=== PATIENT | female | born 1970 | race Caucasian/White ===

== ENCOUNTER 2017-08-23 15:12 | Outpatient (CLI) | payer OTHER ==
--- NOTE | 2017-08-26 10:17 | DEXA Report ---
DEXA SCAN: 08/23/2017 TECHNIQUE: Dual energy x-ray absorptiometry (DXA) was performed on a [employer] system. Regions measured are the AP spine, femoral neck, and, if needed, forearm. COMPARISON: None. In accordance with the International Society for Clinical Densitometry (ISCD) guidelines, data from previous exams may be reanalyzed using current recommendations and techniques. This is done to allow a more accurate basis for comparison with the current study. FINDINGS: The data for the lumbar spine is as follows: REGION BMD (g/cm/cm) T-SCORE Z-SCORE L1 0.960 -1.4 -0.8 L2 1.004 -1.6 -1.0 L3 1.059 -1.2 -0.5 L4 1.086 -1.0 -0.3 TOTAL 1.035 -1.2 -0.6 NOTE: All evaluable vertebrae are used for classification. The data for the hip is as follows: REGION BMD (g/cm/cm) T-SCORE Z-SCORE Neck 0.855 -1.3 -0.4 TOTAL 0.903 -0.8 -0.2 NOTE: The femoral neck or total proximal femur, whichever is lowest, is used for classification. IMPRESSION: THE WHO CLASSIFICATION BASED ON THE INTERNATIONAL REFERENCE STANDARD IS OSTEOPENIA (REFERENCE LEFT FEMORAL NECK). THE FRACTURE RISK IS INCREASED. RECOMMENDATION: Patients with diagnosis of osteoporosis or osteopenia should have regular bone mineral density assessment. For those eligible for Medicare, routine testing is allowed once every 2 years. Testing frequency can be increased for patients who have rapidly progressing disease or for those who are receiving medical therapy to restore bone mass. COMMENT: World Health Organization (WHO) definitions for osteoporosis and osteopenia: NORMAL BMD: T-score at 1.0 or higher, fracture risk is low. OSTEOPENIA BMD: T-score between 1.0 and -2.5, fracture risk is increased. OSTEOPOROSIS BMD: T-score at 2.5 or lower, fracture risk high. National Osteoporosis Foundation recommends: 1. Obtain adequate dietary calcium (at least 1200 mg per day) and vitamin D (400 -800 international units per day). 2. Participate, as appropriate, in regular weightbearing and muscle- strengthening exercise. 3. Avoid tobacco use and reduce alcohol and caffeine intake. 4. For more detailed information see the website at www.NOF.org. MTDD
== END 2017-08-23 15:13 | disposition home or self-care (01) ==
LOC: DI 15:12
PROVIDERS: ATTEND Physician Assistant
DX: E05.90 Thyrotoxicosis, unspecified without thyrotoxic crisis or storm (principal); M85.852 Other specified disorders of bone density and structure, left thigh
CPT/HCPCS: 77080

== ENCOUNTER 2018-12-01 10:23 | Outpatient (CLI) | payer OTHER | END 2018-12-01 10:24 | disposition home or self-care (01) | LOC: DI 10:23 | PROVIDERS: ATTEND Physician Assistant | DX: I10 Essential (primary) hypertension (principal) | CPT/HCPCS: 93306 ==

== ENCOUNTER 2019-03-22 15:58 | Outpatient (CLI) | payer OTHER ==
[2019-03-22 16:43] LABS: FREE T4 (FREE THYROXINE) 0.93 ng/dL (0.58-1.64)
== END 2019-03-22 15:59 | disposition home or self-care (01) ==
LOC: LAB 15:58
PROVIDERS: ATTEND Internal Medicine Endocrinology, Diabetes & Metabolism
DX: E03.9 Hypothyroidism, unspecified (principal)
CPT/HCPCS: 36415; 84439; 84443

== ENCOUNTER 2019-05-26 12:23 | Outpatient (CLI) | payer OTHER | END 2019-05-26 12:24 | disposition critical access hospital (66) | LOC: EMS 12:23 | PROVIDERS: ATTEND Surgery | DX: M25.552 Pain in left hip (principal); R07.81 Pleurodynia; W11.XXXA Fall on and from ladder, initial encounter; Y92.009 Unspecified place in unspecified non-institutional (private) residence as the place of occurrence of the external cause | CPT/HCPCS: A0425; A0429 ==

== ENCOUNTER 2019-05-26 13:01 | Emergency (ER) | payer OTHER ==
--- NOTE | 2019-05-26 13:12 | ED Physician Documentation ---
History of Present Illness - Stated complaint Stated Complaint: FALL 10 FEET - Chief complaint Chief Complaint: General - History obtained from History obtained from: Patient, EMS - History of Present Illness Timing: Today (This is a 49-year-old woman with history of hypertension and hypothyroidism but otherwise very healthy. She was up 10 or 12 feet on a ladder and the ladder gave out and she kind of rode the ladder down and hit on her right side but it is the left side it hurts. She does not think she hit her head although she was briefly amnestic to the accident. Has no headache or neck pain now. Her only complaints are left-sided chest and hip pain. She has not walked since the accident. She declines pain medication on initial evaluation.) Review of Systems Ten Systems: 10 systems reviewed and negative Constitutional: denies: Fever, Chills Cardiac: reports: Chest pain / pressure. denies: Palpitations, Pedal edema, Calf pain Respiratory: denies: Dyspnea, Cough PD PAST MEDICAL HISTORY - Allergies Allergies/Adverse Reactions: Allergies Allergy/AdvReac Type Severity Reaction Status Date / Time No Known Drug Allergies Allergy Verified 05/26/19 13:10 PD ED PE NORMAL - Vitals Vital signs reviewed: Yes - General General: Alert and oriented X 3, No acute distress - HEENT HEENT: PERRL, EOMI - Neck Neck: Supple, no meningeal sign, No bony TTP, Other (C-collar was removed using Nexus criteria after initial examination) - Cardiac Cardiac: RRR, No murmur - Respiratory Respiratory: No respiratory distress, Clear bilaterally, Other (Tender over the left ribs, mid ribs laterally. No deformity.) - Abdomen Abdomen: Normal bowel sounds, Soft, Other (Minimal left upper quadrant tenderness) - Back Back: No CVA TTP, No spinal TTP - Derm Derm: Normal color, Warm and dry - Extremities Extremities: Other (The left hip seems nontender and painless internal and external rotation. She is unable to lift it off the bed though mostly due to pelvic and back pain.) - Neuro Neuro: Alert and oriented X 3, No motor deficit, No sensory deficit, Other (The patient has equal and normal Achilles and patellar reflexes bilaterally. Normal sensation in all areas of the legs. Patient denies saddle anesthesia. Normal strength in flexion-extension at the ankles, knees, and flexion of the hips.) Results - Vitals Vitals: Vital Signs - 24 hr 05/26/19 05/26/19 13:06 13:48 Heart Rate 67 62 Respiratory 16 16 Rate Blood Pressure 117/67 99/62 O2 Saturation 97 100 Oxygen O2 Source Room air - Labs Labs: Laboratory Tests 05/26/19 05/26/19 05/26/19 13:23 13:23 13:23 WBC 11.1 H RBC 4.37 Hgb 13.5 Hct 41.1 MCV 94.1 MCH 30.9 MCHC 32.8 RDW 12.9 Plt Count 332 MPV 9.3 Neut # (Auto) 9.0 H Lymph # (Auto) 1.1 L [place] # (Auto) 0.7 Eos # (Auto) 0.1 Baso # (Auto) 0.1 Absolute Nucleated RBC 0.00 Nucleated RBC % 0.0 PT 12.0 INR 1.1 Sodium 134 L Potassium 3.9 Chloride 101 Carbon Dioxide 25 Anion Gap 8.0 BUN 12 Creatinine 0.6 Estimated GFR (MDRD) 105 Glucose 152 H Calcium 8.9 Total Bilirubin 1.4 H AST 51 H ALT 37 Alkaline Phosphatase 31 L Total Protein 7.1 Albumin 4.3 Globulin 2.8 Albumin/Globulin Ratio 1.5 Lipase 88 H - Rads (name of study) CT of the head Radiology: EMP read contemporaneously (Sinus dz, NAD) CT Cervical Spine Radiology: EMP read contemporaneously (Chronic and generative changes and sinus disease without fracture) CT A/P Radiology: EMP read contemporaneously (Pression fracture with left displaced zone 1 sacral fracture and left obturator ring fractures. Mild enlargement of the left posterior obturator consistent with hematoma. No CT evidence of acute bladder injury. Liver hemangioma or potentially a grade 1 liver injury. Left posterior rib fractures) CT chest with IV contrast Radiology: EMP read contemporaneously (Tiny pneumothorax with 8 left-sided rib fractures) PD MEDICAL DECISION MAKING - ED course ED course: 49-year-old woman with fall from a height. Some amnesia but no obvious signs of head or neck injury. Out of an abundance of caution these were imaged as well. My "wet" read of the CTs show left-sided rib fractures with a small pneumothorax and a chip fracture of the anterior acetabulum and a left-sided sacral fracture. Case was discussed by phone with Dr. Jamil Boyer who recommended having the orthopedic surgeon at [facility] at least look at the films to see if they thought she was an operative candidate. If so she can be transferred, if they do not think surgery is required then she could stay here for pneumothorax observation and conservative management. I spoke with the orthopedic surgeon there who felt that she might be an operative candidate and recommended transfer. Accepted by Dr. Ramírez at [facility] ER in transfer, cobras were completed. She is stable for transport for a higher level of trauma care. Multiple delays in transport were noted including call back from the orthopedic surgeon there, And obtaining a rig to transport her. Departure - Departure Disposition: 02 Transfer Acute Care Hosp Clinical Impression: Pelvic fracture, Left acetabular fracture, Rib fractures, Pneumothorax on left Condition: Serious
--- NOTE | 2019-05-26 13:28 | XRAY Report ---
Reason: fall from height L chest pain Procedure Date: 05/26/2019 Accession Number: [id number] / [id number] Procedure: XR - Chest 1 View X-Ray CPT Code: 08294 Final Report FULL RESULT: EXAM: CHEST RADIOGRAPHY EXAM DATE: 05/26/2019 01:23 PM. CLINICAL HISTORY: Fall from height L chest pain. COMPARISON: None. TECHNIQUE: 1 view. FINDINGS: Lungs/Pleura: No focal opacities evident. No pleural effusion. No pneumothorax. Mediastinum: Within exam limitations, the cardiomediastinal contour is normal. Other: No definite fractures. IMPRESSION: Normal single view chest. RADIA
[2019-05-26] MEDS ORDERED: ONDANSETRON 4 MG/2 ML VIAL IVP STA ×2 (13:31→15:16)
[2019-05-26] MEDS ORDERED: HYDROmorphone 1 MG/ML SYRINGE IVP STA ×2 (13:31→15:16)
[2019-05-26 13:40] LABS: BASOPHILS # (AUTO) 0.1 10^3/uL (0.0-0.1); BASOPHILS % (AUTO) 0.5 %; EOSINOPHILS # (AUTO) 0.1 10^3/uL (0.0-0.7); EOSINOPHILS % (AUTO) 0.9 %; HGB - HEMOGLOBIN 13.5 g/dL (12.0-16.0); LYMPHOCYTES # (AUTO) 1.1 10^3/uL (1.5-3.5); LYMPHOCYTES % (AUTO) 10.1 %; MEAN CORPUSCULAR HEMOGLOBIN 30.9 pg (27.0-31.0); MEAN CORPUSCULAR HGB CONC 32.8 g/dL (32.0-36.0); MEAN CORPUSCULAR VOLUME 94.1 fL (81.0-99.0); MEAN PLATELET VOLUME 9.3 fL (7.9-10.8); MONOCYTES # (AUTO) 0.7 10^3/uL (0.0-1.0); MONOCYTES % (AUTO) 6.3 %; NEUTROPHILS % (AUTO) 80.8 %; PLT - PLATELET COUNT 332 10^3/uL (130-450); RED BLOOD COUNT 4.37 10^6/uL (4.20-5.40); RED CELL DISTRIBUTION WIDTH 12.9 % (12.0-15.0); WHITE BLOOD COUNT 11.1 x10^3/uL (4.8-10.8)
[2019-05-26] MEDS ORDERED: IOVERSOL 320 100 ML VIAL IVP ONE ×2 (13:43→14:44)
[2019-05-26 13:45] LABS: INR 1.1 (0.8-1.2)
[2019-05-26 13:48] LABS: ALBUMIN 4.3 g/dL (3.2-5.5); ALBUMIN/GLOBULIN RATIO 1.5 (1.0-2.2); BILIRUBIN,TOTAL 1.4 mg/dL (0.2-1.0); CALCIUM 8.9 mg/dL (8.5-10.3); CREATININE 0.6 mg/dL (0.4-1.0); TOTAL PROTEIN 7.1 g/dL (6.7-8.2)
--- NOTE | 2019-05-26 14:51 | CT Report ---
Reason: fall from height abd/hip pain, go through hip Procedure Date: 05/26/2019 Accession Number: [id number] / [id number] Procedure: CT - Abdomen/Pelvis W CPT Code: Final Report FULL RESULT: EXAM: CT ABDOMEN AND PELVIS EXAM DATE: 05/26/2019 02:16 PM. CLINICAL HISTORY: Fall from height abd/hip pain, go through hip. COMPARISONS: ABDOMEN/PELVIS W/ 05/26/2019 2:07 PM. TECHNIQUE: Routine helical CT imaging was performed through the abdomen and pelvis. IV contrast: OPTIRAY 320. Enteric contrast: No. Reconstructions: Coronal and sagittal. In accordance with CT protocol optimization, one or more of the following dose reduction techniques were utilized for this exam: automated exposure control, adjustment of mA and/or KV based on patient size, or use of iterative reconstructive technique. FINDINGS: Lung Bases: Findings are detailed separately. Liver: There is a 1.8 cm hypodensity within segment 5 of the liver. No other focal hepatic abnormalities are seen. Gallbladder/Bile Ducts: Unremarkable. Spleen: Normal. Pancreas: Normal. Adrenal Glands: Normal. Kidneys: Normal. No masses or hydronephrosis. Peritoneal Cavity/Bowel: No dilated or thick-walled bowel is seen. No intraperitoneal free air or free fluid. No enlarged mesenteric or retroperitoneal lymph nodes. No evidence of appendicitis. Pelvic Organs: Intrauterine device is in place. Uterus and adnexa demonstrate no significant abnormalities. The bladder is decompressed. It demonstrates no acute abnormalities. Vasculature: No aneurysms or other significant abnormality. Bones: There are displaced left posterior rib fractures. There is a left lateral compression injury with zone 1 sacral fracture and bilateral obturator ring fractures. Other: None. IMPRESSION: 1. Left pelvic lateral compression injury with left displaced zone 1 sacral fracture and left obturator ring fractures. 2. There is mild enlargement of the left posterior obturator musculature consistent with hematoma. 3. There is no CT evidence of acute bladder injury. 4. There is a 1.8 cm heterogeneous hypodensity within segment 6 of the liver. Differential considerations include hemangioma or grade 1 liver injury. 4. There are posterior left rib fractures. Chest findings are detailed separately. RADIA
--- NOTE | 2019-05-26 14:51 | CT Report ---
Reason: head inj Procedure Date: 05/26/2019 Accession Number: [id number] / [id number] Procedure: CT - HEAD WO CPT Code: Final Report FULL RESULT: EXAM: CT HEAD EXAM DATE: 05/26/2019 02:12 PM. CLINICAL HISTORY: Head injury. Fall from ladder 10 feet. COMPARISON: CT head 07/31/2013. TECHNIQUE: Multiaxial CT images were obtained from the foramen magnum to the vertex. Reformats: Sagittal and coronal. IV contrast: None. In accordance with CT protocol optimization, one or more of the following dose reduction techniques were utilized for this exam: automated exposure control, adjustment of mA and/or KV based on patient size, or use of iterative reconstructive technique. FINDINGS: Parenchyma: Stable 7 mm prominent perivascular space versus chronic lacunar infarct right basal ganglia. No intraparenchymal hemorrhage. No evidence of mass, midline shift, or CT findings of infarction. Wan-white differentiation is distinct. Extraaxial Spaces: Normal for age. No subdural or epidural collections identified. Ventricles: Normal in size and position. Sinuses and Orbits: Near complete opacification of the right maxillary sinus. Dependent mucosal thickening or debris left maxillary sinus. Evidence of prior surgical fixation of the maxillae bilaterally partial opacification right mastoid air cells. Bones: No evidence of acute fracture or calvarial defect. Other: None. IMPRESSION: 1. No definite acute intracranial abnormality. No skull fracture. 2. Paranasal sinus disease. RADIA
--- NOTE | 2019-05-26 14:59 | CT Report ---
Reason: Head inj Procedure Date: 05/26/2019 Accession Number: [id number] / [id number] Procedure: CT - CERVICAL SPINE WO CPT Code: Final Report FULL RESULT: EXAM: CT CERVICAL SPINE WITHOUT CONTRAST DATE: 05/26/2019 02:41 PM. HISTORY: Head inj. COMPARISONS: None. TECHNIQUE: Thin-section axial images were acquired of the cervical spine without contrast. Post-processing: Coronal and sagittal reformats. Other: None. In accordance with CT protocol optimization, one or more of the following dose reduction techniques were utilized for this exam: automated exposure control, adjustment of mA and/or KV based on patient size, or use of iterative reconstructive technique. FINDINGS: Alignment: No scoliosis or spondylolisthesis. Bones: No fracture or bone lesion. Bilateral TMJ degenerative disease. Interspace Levels/Facets: Severe degenerative disk disease at C5-C6 and less so C6-C7. Moderate posteriorly encroaching C5-C6 and mild posteriorly encroaching C6-C7 vertebral body spurring with associated central canal stenosis, greater at C5-C6. Mild degenerative facet disease with moderate facet disease at C7-T1 on the left. Uncovertebral spurring results in moderate bilateral C5-C6 and C6-C7 bony neural foraminal narrowing. T Musculature: Normal. No fatty atrophy. Other: Near-total opacification of the visualized right maxillary sinus. Peripheral soft tissue thickening within the inferior left maxillary sinus. Focal posterior, inferior left maxillary wall defect through which some fat projects. Partial demonstration of surgical fixation hardware along the anterior negrete of both maxillary sinuses. No prevertebral soft tissue swelling The lung apices are clear. The inferior most images a small focus of gas within the anterior right supraclavicular soft tissues which is likely venous gas, presumably iatrogenic. No other abraham soft tissue gas IMPRESSION: 1. No fracture or acute abnormality of the cervical spine. 2. Chronic and degenerative findings, as above. 3. Maxillary sinus opacification and postoperative changes, as above. RADIA
--- NOTE | 2019-05-26 15:10 | CT Report ---
Reason: fall from height L chest pain Procedure Date: 05/26/2019 Accession Number: [id number] / [id number] Procedure: CT - CHEST W CPT Code: Final Report FULL RESULT: EXAM: CT CHEST EXAM DATE: 05/26/2019 02:16 PM. CLINICAL HISTORY: Fall from height L chest pain. Fall from 10 foot ladder landing on right anterior body. COMPARISONS: ABDOMEN/PELVIS W/ 05/26/2019 2:07 PM CHEST 1 VIEW 05/26/2019 1:02 PM. TECHNIQUE: Routine helical CT imaging was performed through the chest. IV contrast: 90 mL Optiray 320. Reconstructions: Coronal and sagittal. In accordance with CT protocol optimization, one or more of the following dose reduction techniques were utilized for this exam: automated exposure control, adjustment of mA and/or KV based on patient size, or use of iterative reconstructive technique. FINDINGS: Lungs/Pleura: Trace left anterior layer pneumothorax in the lower chest. Trace left pleural effusion/pleural thickening. Groundglass opacities in the left lung base likely reflect contusion. There are a few small posterior subpleural pneumatoceles in the left lower lobe measuring up to 5 mm, presumably posttraumatic. Additional patchy opacities in the bilateral upper lobes, greater on the right could reflect additional pulmonary contusions versus infectious/inflammatory infiltrate. No suspicious nodules or masses. No right-sided pneumothorax or pleural effusion. Mediastinum: No mediastinal hematoma. No pericardial effusion. Normal cardiac size. No mediastinal or perihilar lymphadenopathy. Tiny locule of gas in the right jugular vein may be related to venous injection (2/14). Bones: Left fourth through 11th rib fractures, detailed as follows: -Eleventh posterior rib fracture is only partially visualized and comminuted. -Displaced left posterior 10th rib fracture with distal fragment indented a ribs width into the thoracic cavity. -Comminuted mildly displaced posterior ninth rib fracture. -Nondisplaced posterior seventh rib fracture. -Mildly displaced anterolateral sixth rib fracture. -Nondisplaced anterolateral fifth rib fracture with small locules of air in the surrounding soft tissues. -Nondisplaced lateral fourth rib fracture. No other fracture identified in the chest. Visualized Abdomen: Numerous subcentimeter hypodensities in liver parenchyma. See separate report for concurrent CT abdomen/pelvis for complete findings. Other: None. IMPRESSION: 1. Fourth through eleventh left-sided rib fractures, some of which are displaced, with associated pulmonary contusion and tiny posttraumatic pneumatoceles. 2. Trace anteriorly layering left pneumothorax. 3. Additional bilateral upper lobe patchy opacities could reflect pulmonary contusion versus incidental infectious/inflammatory process. Clinical correlation recommended. 4. Other findings as above. RADIA The call report notification system was initiated by Dr. Daryn Bryan at 02:59 PM on 05/26/2019. The above call report findings were discussed with Wilber Liu by Dr. Daryn Bryan at 03:01 PM on 05/26/2019.
[2019-05-26 16:38] VITALS: BP 91/73
== END 2019-05-26 16:37 | disposition short-term general hospital (02) ==
LOC: EDUNIT# → ED 13:01
DX: S22.42XA Multiple fractures of ribs, left side, initial encounter for closed fracture (principal); S32.111A Minimally displaced Zone I fracture of sacrum, initial encounter for closed fracture; S32.492A Other specified fracture of left acetabulum, initial encounter for closed fracture; W17.89XA Other fall from one level to another, initial encounter; J93.9 Pneumothorax, unspecified; I10 Essential (primary) hypertension
CPT/HCPCS: 36415; 70450; 71045; 71260; 72125; 74177; 80053; 83690; 85025; 85610; 96374; 96375; 96376; 99284; 99285; J1170; Q9967

== ENCOUNTER 2019-05-26 16:38 | Outpatient (CLI) | payer OTHER | END 2019-05-26 16:39 | disposition home or self-care (01) | LOC: EMS 16:38 | PROVIDERS: ATTEND Surgery | DX: S22.49XA Multiple fractures of ribs, unspecified side, initial encounter for closed fracture (principal); S32.9XXA Fracture of unspecified parts of lumbosacral spine and pelvis, initial encounter for closed fracture; S27.0XXA Traumatic pneumothorax, initial encounter; W11.XXXA Fall on and from ladder, initial encounter | CPT/HCPCS: A0425; A0426 ==

== ENCOUNTER 2019-12-10 13:25 | Outpatient (CLI) | payer OTHER ==
--- NOTE | 2019-12-12 08:13 | Mammography Report ---
BILATERAL DIGITAL SCREENING MAMMOGRAM 3D/2D: 12/10/2019 CLINICAL: Routine screening. Baseline exam. No prior exams were available for comparison. The tissue of both breasts is heterogeneously dense. T his may lower the sensitivity of mammography. No significant masses, calcifications, or other findings are seen in either breast. IMPRESSION: NEGATIVE There is no mammographic evidence of malignancy. A 1 year screening mammogram is recommended. This exam was interpreted at Station ID: [id number]. NOTE: For mammograms, a report in lay terms will be sent to the patient. Approximately 15% of breast malignancies will not be visualized mammographically. In the management of a palpable breast mass, a negative mammogram must not discourage biopsy of a clinically suspicious lesion. Electronically Signed By: Israel le/miguel:12/10/2019 18:41:16 ACR BI-RADS Category 1: Negative 3341F PARENCHYMAL PATTERN: (D) - The breast(s) demonstrate(s) heterogeneously dense fibroglandular dorian shepherd. BI-RADS CATEGORY: (1) - 1 RECOMMENDATION: (ANNUAL) - Recommend routine annual screening mammography. [id number] 1 year screening LATERALITY: (B)
== END 2019-12-10 13:26 | disposition home or self-care (01) ==
LOC: DI 13:25
PROVIDERS: ATTEND Nurse Practitioner Family
DX: Z12.31 Encounter for screening mammogram for malignant neoplasm of breast (principal)
CPT/HCPCS: 77063; 77067

== ENCOUNTER 2019-12-10 13:26 | Outpatient (CLI) | payer OTHER ==
--- NOTE | 2019-12-11 16:29 | DEXA Report ---
PROCEDURE: Dexa Spine and/or Hip INDICATIONS: HISTORY OF OSTEOPOROSIS, PELVIC FRACTURE TECHNIQUE: Dual energy x-ray absorptiometry (DXA) was performed on a [employer] System. Regions measur ed are the AP Spine, femoral neck, and if needed forearm. COMPARISON: 08/23/2017. FINDINGS: Lumbar Spine: Bone Mineral Density 1.057 g/cm/cm,T score -1.0, normal bone mineral density Left Femoral Neck: Bone Mineral Density 0.855 g/cm/cm, T score -1.2, osteopenia (T score greater or equal to -1.0: NORMAL) (T score from -1.1 to -2.4: OSTEOPENIA) (T score less than or equal to -2.5 to: OSTEOPOROSIS) Impression: Osteopenia. Patient is at increased risk for fracture. Patients with diagnosis of osteoporosis or osteopenia should have regular bone mineral density assess ment. For those eligible for Medicare, routine testing is allowed once every 2 years. Testing frequ ency can be increased for patients who have rapidly progressing disease or for those who are receivin g medical therapy to restore bone mass. Reviewed by: Israel Garcia MD on 12/11/2019 4:28 PM PDT Approved by: Israel Garcia MD on 12/11/2019 4:28 PM PDT Station ID: [id number]
== END 2019-12-10 13:27 | disposition home or self-care (01) ==
LOC: DI 13:26
PROVIDERS: ATTEND Registered Nurse
DX: M85.88 Other specified disorders of bone density and structure, other site (principal); Z82.62 Family history of osteoporosis
CPT/HCPCS: 77080

== ENCOUNTER 2020-04-01 13:08 | Outpatient (CLI) | payer OTHER ==
--- NOTE | 2020-04-01 14:46 | MRI Report ---
PROCEDURE: Shoulder RT W/O INDICATIONS: RT SHOULDER PAIN TECHNIQUE: Noncontrast oblique coronal T2 fast spin echo with fat saturation, oblique sagittal T1 spin echo and T2 fast spin echo with fat saturation, axial T1 spin echo and T2 fast spin echo with fat saturation t hrough the shoulder. COMPARISON: None. FINDINGS: Image quality: Excellent. Rotator cuff: Low-grade partial-thickness intrasubstance tearing of the anterior, mid, and posterior supraspinatus, as well as the mid and anterior infraspinatus tendons at the humeral insertion site, e xtending to the musculotendinous junction. Subscapularis and teres minor tendons are intact. No rotat or cuff atrophy. Bones and bursae: No bone marrow contusions or fractures. Moderate acromioclavicular joint degenerat ion. The acromion demonstrates conventional anatomy, without an os acromiale. No pathologic subacro mial/subdeltoid bursal fluid is present. Capsule and soft tissues: Linear high T2 signal intensity traverses the posterior labrum, suggestive of labral tearing. The long head of the biceps tendon demonstrates normal location and morphology. T he rotator interval appears normal, without fibrosis. The coracohumeral ligament is normal in thickn ess. IMPRESSION: 1. Acromioclavicular joint osteoarthritis. 2. Low-grade partial thickness tearing of the supraspinatus and infraspinatus tendons. 3. Possible posterior labral tearing. Reviewed by: Vasyl Hargrove MD on 04/01/2020 2:44 PM PST Approved by: Vasyl Hargrove MD on 04/01/2020 2:44 PM PST Station ID: [id number]
--- NOTE | 2020-04-01 14:51 | XRAY Report ---
PROCEDURE: Shoulder 3 View RT INDICATIONS: RT SHOULDER PAIN TECHNIQUE: views of the shoulder were acquired. COMPARISON: None. FINDINGS: Bones: No fractures or dislocations. No suspicious bony lesions. Visualized ribs appear intact. P eriarticular osteophyte formation at the acromioclavicular and glenohumeral joints. Soft tissues: No suspicious soft tissue calcifications. IMPRESSION: Osteoarthritis. No acute fracture. No osseous lesion. If symptoms and/or clinical suspic ion for pathology continue, further assessment with repeat plain films, or advanced imaging (e.g., CT , MRI, or bone scan) is recommended for further assessment. Reviewed by: Vasyl Hargrove MD on 04/01/2020 2:50 PM PST Approved by: Vasyl Hargrove MD on 04/01/2020 2:50 PM PST Station ID: [id number]
== END 2020-04-01 13:09 | disposition home or self-care (01) ==
LOC: DI 13:08
PROVIDERS: ATTEND Nurse Practitioner Family
DX: M19.011 Primary osteoarthritis, right shoulder (principal); S46.811A Strain of other muscles, fascia and tendons at shoulder and upper arm level, right arm, initial encounter

== ENCOUNTER 2020-11-18 16:27 | Outpatient (CLI) | payer OTHER | END 2020-11-18 16:28 | disposition home or self-care (01) | LOC: COV 16:27 | PROVIDERS: ATTEND Family Medicine | DX: Z20.822 Contact with and (suspected) exposure to COVID-19 (principal) ==

== ENCOUNTER 2021-05-05 14:41 | Outpatient (CLI) | payer OTHER ==
--- NOTE | 2021-05-05 20:47 | CT Report ---
PROCEDURE: PELVIS WO INDICATIONS: PELVIC BONE PAIN S/P SURGERY TECHNIQUE: Noncontrast 3 mm axial sections acquired through the bony pelvis, with coronal and sagittal reformatt ing. For radiation dose reduction, the following was used: automated exposure control, adjustment of mA and/or kV according to patient size. COMPARISON: CT abdomen/pelvis 05/26/2019. FINDINGS: Image quality: Excellent. Bones: Postsurgical changes are seen from fixation of the left sacroiliac joint with a single metall ic screw. The hardware is intact without signs of loosening. The metallic screw appears to be well-po sitioned and within the sacrum. Mild residual cortical irregularity is seen along the anterior left h emisacrum, which appears well-healed. Previously seen left pubic rami fractures are healed without si gnificant residual deformity. No acute osseous fracture or dislocation is seen. Degenerative changes are seen in the included lower lumbar spine. Soft tissues: The musculature surrounding the hips is normal in bulk. The articular cartilages, labr um, ligaments, and tendons are not well evaluated with standard CT. No acute opacity is seen in the s oft tissues of the pelvis. An intrauterine device is seen in expected position. A right ovarian cyst measures 2.3 cm, similar in size when compared to the CT from 05/26/2019 IMPRESSION: 1.Post surgical changes from left sacroiliac fixation with intact hardware. Previously seen sacral an d pelvic fractures appear well-healed. 2.No acute osseous abnormality. 3.Nonspecific right ovarian 2.3 cm cyst has not significant changed in size. 4.Mild degenerative changes in the included lower lumbar spine. Reviewed by: Didier Rowell MD on 05/05/2021 8:45 PM PST Approved by: Didier Rowlel MD on 05/05/2021 8:45 PM PST Station ID: [id number]
== END 2021-05-05 14:42 | disposition home or self-care (01) ==
LOC: DI 14:41
PROVIDERS: ATTEND Internal Medicine
DX: R10.2 Pelvic and perineal pain (principal); Z09 Encounter for follow-up examination after completed treatment for conditions other than malignant neoplasm; Z87.81 Personal history of (healed) traumatic fracture; N83.201 Unspecified ovarian cyst, right side; M47.816 Spondylosis without myelopathy or radiculopathy, lumbar region

== ENCOUNTER 2022-01-05 13:05 | Outpatient (CLI) | payer OTHER ==
[2022-01-05 13:55] LABS: THYROID STIMULATING HORMONE 2.56 uIU/mL (0.34-5.60)
[2022-01-05 13:57] LABS: FREE T4 (FREE THYROXINE) 0.83 ng/dL (0.58-1.64)
== END 2022-01-05 13:06 | disposition home or self-care (01) ==
LOC: LAB 13:05
PROVIDERS: ATTEND Internal Medicine Endocrinology, Diabetes & Metabolism
DX: E89.0 Postprocedural hypothyroidism (principal)
CPT/HCPCS: 36415; 84439; 84443

== ENCOUNTER 2022-09-10 14:37 | Outpatient (CLI) | payer OTHER ==
--- NOTE | 2022-09-13 09:51 | Mammography Report ---
BILATERAL DIGITAL SCREENING MAMMOGRAM 3D/2D: 09/10/2022 CLINICAL: Routine screening. Comparison is made to exam dated: 12/10/2019 mammogram - [facility]. Both breasts are heterogeneously dense, which may obscure small masses (category c / 51-75% glandular tissue). No significant masses, calcifications, or other findings are seen in either breast. There has been no significant interval change. IMPRESSION: NEGATIVE There is no mammographic evidence of malignancy. A 1 year screening mammogram is recommended. Based on the Tyrer Cuzick model (a risk assessment model) the patients lifetime risk is 19.1% and he r 10 year risk is 5.7%. According to the ACR, ACS, and NCCN guidelines, an annual breast MRI exam garcía ng with mammogram is recommended if the patients lifetime risk is 20% or greater. This exam was interpreted at Station ID: [id number]. NOTE: For mammograms, a report in lay terms will be sent to the patient. Approximately 15% of breast malignancies will not be visualized mammographically. In the management of a palpable breast mass, a negative mammogram must not discourage biopsy of a clinically suspicious lesion. Electronically Signed By: Sanket white/miguel:09/10/2022 17:19:44 letter sent: No_Letter ACR BI-RADS Category 1: Negative 3341F PARENCHYMAL PATTERN: (D) - The breast(s) demonstrate(s) heterogeneously dense fibroglandular dorian shepherd. BI-RADS CATEGORY: (1) - 1 Mammogram [id number] 1 year screening LATERALITY: (B)
== END 2022-09-10 14:38 | disposition home or self-care (01) ==
LOC: DI 14:37
PROVIDERS: ATTEND Physician Assistant
DX: Z12.31 Encounter for screening mammogram for malignant neoplasm of breast (principal)

== ENCOUNTER 2023-08-25 16:22 | Emergency (ER) | payer OTHER ==
[2023-08-25 16:48] VITALS: O2SAT 97
--- NOTE | 2023-08-25 16:55 | ED Physician Documentation ---
History of Present Illness - Stated complaint Stated Complaint: ELAINE/DIZZY/GI - Chief complaint Chief Complaint: General - History obtained from History obtained from: Patient - Additonal information Additional information: 53-year-old woman with history of hypertension hypothyroidism. She just got back from [place] and 9 days ago developed both flu and COVID confirmed on a swab. Then she developed terrible diarrhea which stopped 2 days ago and has a persistent cough. She presents to the emergency department mostly because she is feeling dehydrated very "dry" all over. She denies fevers. PD PAST MEDICAL HISTORY - Past Medical History Past Medical History: Yes Cardiovascular: Hypertension Endocrine/Autoimmune: HyPOthyroidism Psych: Anxiety - Past Surgical History Past Surgical History: Yes - Allergies Allergies/Adverse Reactions: Allergies Allergy/AdvReac Type Severity Reaction Status Date / Time Sulfa (Sulfonamide Allergy Hives Verified 08/25/23 16:34 Antibiotics) - Social History Does the pt smoke?: No Smoking Status: Never smoker Does the pt drink ETOH?: No Does the pt have substance abuse?: No - Immunizations Immunizations are current?: Yes - POLST Patient has POLST: No PD ED PE NORMAL - Vitals Vital signs reviewed: Yes - General General: Alert and oriented X 3, No acute distress - HEENT HEENT: PERRL, EOMI, Pharynx benign - Neck Neck: Supple, no meningeal sign - Cardiac Cardiac: RRR, No murmur - Respiratory Respiratory: No respiratory distress, Other (Occasional cough with rhonchi at both bases.) - Derm Derm: No rash Results - Vitals Vitals: Vital Signs - 24 hr 08/25/23 16:34 Temperature 36.5 C Heart Rate 64 Respiratory 16 Rate Blood Pressure 156/86 H O2 Saturation 97 Oxygen O2 Source Room air - Labs Labs: Laboratory Tests 08/25/23 08/25/23 16:54 16:54 WBC 4.0 L RBC 4.41 Hgb 13.4 Hct 39.8 MCV 90.2 MCH 30.4 MCHC 33.7 RDW 12.3 Plt Count 274 MPV 9.3 Neut # (Auto) Not Reportable Lymph # (Auto) Not Reportable Rowan # (Auto) Not Reportable Eos # (Auto) Not Reportable Baso # (Auto) Not Reportable Absolute Nucleated RBC Not Reportable Total Counted 100 Band Neuts % (Manual) 0 Abnorm Lymph % (Manual) 5 Nucleated RBC % Not Reportable Neutrophils # (Manual) 2.2 Lymphocytes # (Manual) 1.4 L Monocytes # (Manual) 0.4 Eosinophils # (Manual) 0.0 Basophils # (Manual) 0.0 Differential Comment MANUAL DIFFERENTIAL WBC Morphology 1+ SMUDGE CELLS Platelet Estimate NORMAL (130-450,000) Platelet Morphology 1+ LARGE P RBC Morph Micro Appear NORMAL APPEARANCE Sodium 133 L Potassium 3.8 Chloride 98 L Carbon Dioxide 29 Anion Gap 6.0 BUN 15 Creatinine 0.8 Estimated GFR (MDRD) 74 L Glucose 86 Calcium 9.7 Magnesium 1.8 Total Bilirubin 0.8 AST 28 ALT 21 Alkaline Phosphatase 49 Total Protein 6.8 Albumin 4.3 Globulin 2.5 Albumin/Globulin Ratio 1.7 - Rads (name of study) Single view chest x-ray is clear with stable scarring of the right upper lobe Relevant Findings:: Final report received, EMP independent interpretation of test PD Medical Decision Making - ED course ED course: She presents after having both flu and COVID feeling dehydrated. She also has a persistent cough. CBC showing the expected lymphopenia of a viral syndrome. CMP showing mild hyponatremia probably from dehydration. She received 2 L of crystalloid and a dose of IV ketorolac here with improvement in her symptoms. Departure - Departure Disposition: 01 Home, Self Care Clinical Impression: Dehydration Condition: Good Record reviewed to determine appropriate education?: Yes Instructions: ED Dehydration Comments: You were seen today after having both flu and COVID at the same time with symptoms of dehydration. He received 2 L of IV fluid here. Your labs were only notable for a lymphopenia which is expected when you have something like COVID and should improve with time. Drink plenty fluids and rest. Return for new or worsening symptoms. Forms: PCP List
[2023-08-25] MEDS: LACTATED RINGERS 1,000 ML IV STA (17:12)
[2023-08-25] MEDS: SODIUM CHLORIDE 0.9% 1,000 ML IV STA (17:13)
[2023-08-25] MEDS: KETOROLAC 15 MG/ML VIAL IVP STA (17:13)
[2023-08-25 17:22] LABS: BASOPHILS % (AUTO) 0.5 %; EOSINOPHILS % (AUTO) 2.5 %; HCT - HEMATOCRIT 39.8 % (37.0-47.0); HGB - HEMOGLOBIN 13.4 g/dL (12.0-16.0); LYMPHOCYTES % (AUTO) 32.7 %; MEAN CORPUSCULAR HEMOGLOBIN 30.4 pg (27.0-31.0); MEAN CORPUSCULAR HGB CONC 33.7 g/dL (32.0-36.0); MEAN CORPUSCULAR VOLUME 90.2 fL (81.0-99.0); MEAN PLATELET VOLUME 9.3 fL (7.9-10.8); MONOCYTES % (AUTO) 9.9 %; NEUTROPHILS % (AUTO) 54.2 %; PLT - PLATELET COUNT 274 10^3/uL (130-450); RED BLOOD COUNT 4.41 10^6/uL (4.20-5.40); RED CELL DISTRIBUTION WIDTH 12.3 % (12.0-15.0)
[2023-08-25 17:24] LABS: MAGNESIUM 1.8 mg/dL (1.7-2.3)
[2023-08-25 17:25] LABS: BAND NEUTROPHILS % (MANUAL) 0 %
[2023-08-25 17:30] LABS: ALBUMIN 4.3 g/dL (3.2-5.5); ALBUMIN/GLOBULIN RATIO 1.7 (1.0-2.2); BILIRUBIN,TOTAL 0.8 mg/dL (0.2-1.0); CALCIUM 9.7 mg/dL (8.5-10.3); CREATININE 0.8 mg/dL (0.6-1.3); POTASSIUM 3.8 mmol/L (3.5-4.5); TOTAL PROTEIN 6.8 g/dL (6.4-8.9)
[2023-08-25 17:54] LABS: ABNORMAL LYMPHS % (MANUAL) 5 %; BASOPHILS % (MANUAL) 1 %; LYMPHOCYTES # (MANUAL) 1.4 10^3/uL (1.5-3.5); LYMPHOCYTES % (MANUAL) 29 %; MONOCYTES # (MANUAL) 0.4 10^3/uL (0.0-1.0); NEUTROPHILS # (MANUAL) 2.2 10^3/uL (1.5-6.6)
[2023-08-25 17:56] LABS: DIFFERENTIAL COMMENT MANUAL DIFFERENTIAL; PLATELET ESTIMATE, MANUAL NORMAL (130-450,000) (NORMAL); PLATELET MORPHOLOGY 1+ LARGE P (NORMAL); RBC MORPHOLOGY (MULTIPLE) NORMAL APPEARANCE (NORMAL); WBC MORPHOLOGY (MULTIPLE) 1+ SMUDGE CELLS (NORMAL)
--- NOTE | 2023-08-25 17:59 | XRAY Report ---
PROCEDURE: Chest 1V INDICATIONS: COUGH TECHNIQUE: One view of the chest was acquired. COMPARISON: 05/26/2019 FINDINGS: Surgical changes and devices: None. Lungs and pleura: No pleural effusions or pneumothorax. Lungs are clear. Stable scarring of the rig ht upper lobe. Mediastinum: Mediastinal contours appear normal. Heart size is normal. Bones and chest wall: No suspicious bony lesions. Overlying soft tissues appear unremarkable. IMPRESSION: No acute cardiopulmonary process. Reviewed by: Dion Chapman MD on 08/25/2023 5:57 PM PDT Approved by: Dion Chapman MD on 08/25/2023 5:57 PM PDT Station ID: [id number]
[2023-08-25 18:35] VITALS: BP 130/80
== END 2023-08-25 18:26 | disposition home or self-care (01) ==
LOC: ED 16:22
DX: E86.0 Dehydration (principal); R05.3 Chronic cough; I10 Essential (primary) hypertension; E03.9 Hypothyroidism, unspecified
CPT/HCPCS: 36415; 80053; 83735; 85025; 96361; 96374; 99284